=== PATIENT | female | born 1975 | race Two or more races ===

== ENCOUNTER 2022-07-08 11:00 | Outpatient (CLI) | payer OTHER | END 2022-07-08 11:05 | disposition home or self-care (01) | LOC: PPH VACUNA 11:00 | PROVIDERS: ATTEND Emergency Medicine Pediatric Emergency Medicine | DX: Z23 Encounter for immunization (principal) ==

== ENCOUNTER 2023-01-01 14:06 | Outpatient (CLI) | payer OTHER | END 2023-01-01 14:14 | disposition home or self-care (01) | LOC: PPH VACUNA 14:06 | PROVIDERS: ATTEND Emergency Medicine Pediatric Emergency Medicine | DX: Z23 Encounter for immunization (principal) ==

== ENCOUNTER → 2023-06-24 | Outpatient (CLI) | payer OTHER | END | disposition home or self-care (01) | LOC: PPH VACUNA | PROVIDERS: ATTEND Emergency Medicine Pediatric Emergency Medicine | DX: Z23 Encounter for immunization (principal) ==

== ENCOUNTER 2024-09-04 10:30 | Outpatient (CLI) | payer OTHER | END 2024-09-04 10:40 | disposition home or self-care (01) | LOC: PPH VACUNA 10:30 | PROVIDERS: ATTEND Emergency Medicine Pediatric Emergency Medicine | DX: Z23 Encounter for immunization (principal) ==